=== PATIENT | male | born 1970 | race Caucasian/White ===

== ENCOUNTER 2018-05-15 15:57 | Inpatient (IN) | payer OTHER ==
[2018-05-15 19:03] VITALS: BMI 22.3
--- NOTE | 2018-05-15 21:27 | HP ---
CIWA Score - CIWA Score Nausea/Vomitin (vomiting x 3) Muscle Tremors: 3 Anxiety: 3 Agitation: 0-Normal Activity Paroxysmal Sweats: No Perspiration Orientation: 0-Oriented Tacttile Disturbances: 2-Mild Itch/Numbness/Burn Auditory Disturbances: 0-None Visual Disturbances: 0-None Headache: 4-Moderately Severe CIWA-Ar Total Score: 15 Admission ROS S - HPI Chief Complaint: Alcohol withdrawal symptoms Allergies/Adverse Reactions: Allergies Allergy/AdvReac Type Severity Reaction Status Date / Time No Known Allergies Allergy Verified 05/15/18 18:44 History of Present Illness: 47 years old male with a long history of alcohol dependence is seeking admission to detox. This is his first detox and first admission to [facility]. He has medical history of Arthritis, chronic back pain, anxiety and depression and Hypertension. He denies suicidal attempt and [id number] ideation at this time. Patient reports four years of sobriety and states that he has been homeless for three years now. Exam Limitations: No Limitations - Ebola screening Have you traveled outside of the country in the last 21 days: No Have you had contact with anyone from an Ebola affected area: No Have you been sick,other than usual withdrawal symptoms: No Do you have a fever: No - Review of Systems Constitutional: Loss of Appetite, Malaise, Night Sweats, Changes in sleep, Weakness EENT: reports: Other (left ear hearing impaired) Respiratory: reports: No Symptoms reported Cardiac: reports: No Symptoms Reported GI: reports: Diarrhea (diarrhea x 4), Poor Appetite, Poor Fluid Intake, Vomiting , Abdominal cramping : reports: No Symptoms Reported Musculoskeletal: reports: No Symptoms Reported Integumentary: reports: Dryness Neuro: reports: Headache, Tingling, Weakness Endocrine: reports: No Symptoms Reported Hematology: reports: No Symptoms Reported Psychiatric: reports: Orientated x3, Anxious, Depressed Other Systems: Reviewed and Negative Patient History - Patient Medical History Hx Anemia: No Hx Asthma: No Hx Chronic Obstructive Pulmonary Disease (COPD): No Hx Cancer: No Hx Cardiac Disorders: No Hx Congestive Heart Failure: No Hx Hypertension: Yes (Not on medication) Hx Hypercholesterolemia: No Hx Pacemaker: No HX Cerebrovascular Accident: No Hx Seizures: No Hx Dementia: No Hx Diabetes: No Hx Gastrointestinal Disorders: No Hx Liver Disease: No Hx Genitourinary Disorders: No Hx Sexually Transmitted Disorders: No Hx Renal Disease (ESRD): No Hx Thyroid Disease: No Hx Human Immunodeficiency Virus (HIV): No (Negative 2011) Hx Hepatitis C: No Hx Depression: Yes (Not on m edication) Hx Suicide Attempt: No (Denies suicide attempt/ suicdalo ideation) Hx Bipolar Disorder: No Hx Schizophrenia: No Other Medical History: Anxiety, Arthritis and baqck pain - Not on medication - Patient Surgical History Past Surgical History: Yes Hx Neurologic Surgery: No Hx Cataract Extraction: No Hx Cardiac Surgery: No Hx Lung Surgery: No Hx Breast Surgery: No Hx Breast Biopsy: No Hx Abdominal Surgery: No Hx Appendectomy: No Hx Cholecystectomy: No Hx Genitourinary Surgery: No Hx Section: No Hx Orthopedic Surgery: Yes (-2015) Other Surgical History: HERNIA- 2011 Anesthesia Reaction: No - PPD History Previous Implant?: Yes Documented Results: Negative w/o proof - Smoking Cessation Smoking history: Current every day smoker Aproximately how many cigarettes per day: 10 Hx Chewing Tobacco Use: No Initiated information on smoking cessation: Yes 'Breaking Loose' booklet given: 05/15/18 - Substances Abused Alcohol Route: Oral Frequency: Daily Amount used: LIQUOR- 3 PINTS, BEER- 1 SIX PACK Age of first use: 17 Date of Last Use: 05/14/18 Marijuana/Hashish Route: Smoking Frequency: Daily Amount used: 1 SAIMA Age of first use: 21 Date of Last Use: 05/15/18 Family Disease History - Family Disease History Family Disease History: Diabetes: Mother (Ovarian Ca), Heart Disease: Father ( Stroke at 47 years, Alcoho abuse), Mother, CA: Grandparent (prostate (father), ovarian ca (mother)), Mother Admission Physical Exam [facility] - Vital Signs Vital Signs: Vital Signs - 24 hr 05/15/18 18:33 Temperature 98.3 F Pulse Rate 72 Respiratory 18 Rate Blood Pressure 132/90 - Physical General Appearance: Yes: Appropriately Dressed, Moderate Distress, Sweating, Anxious HEENTM: Yes: Normal ENT Inspection, Normal Voice, NICK Respiratory: Yes: Lungs Clear, Normal Breath Sounds, No Respiratory Distress Neck: Yes: Supple Breast: Yes: Breast Exam Deferred Cardiology: Yes: Regular Rhythm, Regular Rate, S1, S2 Abdominal: Yes: Normal Bowel Sounds Genitourinary: Yes: Within Normal Limits Back: Yes: Normal Inspection Musculoskeletal: Yes: Within Normal Limits Extremities: Yes: Tremors Neurological: Yes: assistant librarian II-XII NML intact, Normal Mood/Affect Integumentary: Yes: Warm - Diagnostic (1) Alcohol dependence with uncomplicated withdrawal Current Visit: Yes Status: Chronic (2) Nicotine dependence in remission Current Visit: Yes Status: Chronic (3) Arthritis Current Visit: Yes Status: Chronic (4) Back pain Current Visit: Yes Status: Chronic (5) Anxiety Current Visit: Yes Status: Chronic (6) Depression Current Visit: Yes Status: Chronic Qualifiers: Depression Type: unspecified Qualified Code(s): F32.9 - Major depressive disorder, single episode, unspecified (7) Hypertension Current Visit: Yes Status: Acute Cleared for Admission [facility] - Detox or Rehab [facility] Level of Care: Medically Managed Detox Regimen/Protocol: Librium [facility] Breath Alcohol Content Breath Alcohol Content: 0 Urine Drug Screen - Results Drug Screen Negative: No Urine Drug Screen Results: THC-Marijuana, BAR-Barbiturates
[2018-05-15] MEDS ORDERED: P-EPHED 60MG/TRIPROLIDI 2.5MG TABLET PO PRN (21:42)
[2018-05-15] MEDS ORDERED: chlordiazePOXIDE HCL 25 MG CAPSULE PO PRN (21:42)
[2018-05-15] MEDS ORDERED: ACETAMINOPHEN 325 MG TABLET (FP) PO PRN (21:42)
[2018-05-15] MEDS ORDERED: LOPERAMIDE HCL 2 MG CAPSULE PO PRN (21:42)
[2018-05-15] MEDS ORDERED: MENTHOL/PHENOL 1 EACH UD MM PRN (21:42)
[2018-05-15] MEDS ORDERED: MAG HYDROX/AL HYDROX/SIMETH 30 ML UNIT-DOSE CUP PO PRN (21:42)
[2018-05-15] MEDS ORDERED: MAGNESIUM CITRATE 300 ML BOTTLE PO PRN (21:42)
[2018-05-15] MEDS ORDERED: NICOTINE POLACRILEX 2 MG GUM BC PRN (21:42)
[2018-05-15] MEDS ORDERED: MAGNESIUM HYDROX 2400MG/30ML ORAL SUSPENSION 30 ML CUP PO PRN (21:42)
[2018-05-15] MEDS ORDERED: MELATONIN 5 MG TABLETS PO PRN (22:00)
[2018-05-15] MEDS: chlordiazePOXIDE HCL 25 MG CAPSULE PO SCH (23:29)
[2018-05-15] MEDS: THIAMINE HCL 100 MG TABLET (FP) PO SCH (23:30)
[2018-05-15] MEDS: IBUPROFEN 400 MG TABLET (FP) PO PRN (23:35)
[2018-05-15 23:52] LABS: URINE APPEARANCE CLEAR; URINE BILIRUBIN NEGATIVE (<2.0 mg/dL); URINE COLOR YELLOW; URINE GLUCOSE (UA) NEGATIVE (NEGATIVE); URINE KETONE NEGATIVE (NEGATIVE); URINE LEUK ESTERASE NEGATIVE (NEGATIVE); URINE NITRITE NEGATIVE (NEGATIVE); URINE PROTEIN NEGATIVE (NEGATIVE); URINE UROBILINOGEN NEGATIVE mg/dL (0.2-1.0)
[2018-05-16] MEDS: guaiFENesin/D-METHORPHAN HB 10 ML UNIT-DOSE CUPS PO PRN ×2 (06:08→22:13)
[2018-05-16] MEDS: chlordiazePOXIDE HCL 25 MG CAPSULE PO SCH ×4 (06:08→22:13)
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
[2018-05-16 10:22] LABS: HEMATOCRIT 40.8 % (35.4-49); HEMOGLOBIN 13.3 GM/dL (11.7-16.9); MCH 30.8 pg (25.7-33.7); MCHC 32.5 g/dl (32.0-35.9); MEAN CELL VOLUME 94.7 fl (80-96); MEAN PLT VOLUME 9.4 fl (7.5-11.1); PLATELET COUNT 240 K/MM3 (134-434); RBC 4.31 M/mm3 (4.00-5.60); RDW 14.9 % (11.9-15.9); WHITE BLOOD COUNT 10.2 K/mm3 (4.0-10.0)
[2018-05-16] MEDS: NICOTINE 14 MG/24 HOURS TOPICAL PATCH TD SCH (10:22)
[2018-05-16] MEDS: PRENATAL VITAMINS W/ FOLIC ACID TABLET (FP) PO SCH (10:22)
[2018-05-16 11:31] LABS: ALBUMIN 3.4 g/dl (3.4-5.0); ANION GAP 5 MMOL/L (8-16); BLOOD UREA NITROGEN 16 mg/dL (7-18); CALCIUM 9.4 mg/dL (8.5-10.1); CHLORIDE 92 mmol/L (98-107); CO2 42 mmol/L (21-32); GLUCOSE,RANDOM 117 mg/dL (74-106); POTASSIUM 3.2 mmol/L (3.5-5.1); SGOT/AST 59 U/L (15-37); SODIUM 139 mmol/L (136-145)
[2018-05-16 11:33] LABS: ALK PHOS 126 U/L (45-117); BILIRUBIN,TOTAL 0.3 mg/dL (0.2-1.0); CREATININE 0.7 mg/dL (0.7-1.3); SGPT/ALT 48 U/L (12-78); TOT PROT 7.1 g/dl (6.4-8.2)
--- NOTE | 2018-05-16 15:00 | PN ---
[facility] CIWA - CIWA Score Nausea/Vomitin-Mild Nausea/No Vomiting Muscle Tremors: 4-Moderate,w/Arms Extend Anxiety: 4-Mod. Anxious/Guarded Agitation: 3 Paroxysmal Sweats: 1-Minimal Palms Moist Orientation: 0-Oriented Tacttile Disturbances: 1-Very Mild Itch/Numbness Auditory Disturbances: 0-None Visual Disturbances: 0-None Headache: 0-None Present CIWA-Ar Total Score: 14 BHS Progress Note (SOAP) Subjective: sweat tremor restlessness low energy Objective: 05/16/18 15:00 Vital Signs Temperature 97.7 F 05/16/18 13:09 Pulse Rate 76 05/16/18 13:09 Respiratory Rate 18 05/16/18 13:09 Blood Pressure 122/76 05/16/18 13:09 O2 Sat by Pulse Oximetry (%) Laboratory Last Values WBC 10.2 K/mm3 (4.0-10.0) H 05/16/18 07:00 RBC 4.31 M/mm3 (4.00-5.60) 05/16/18 07:00 Hgb 13.3 GM/dL (11.7-16.9) 05/16/18 07:00 Hct 40.8 % (35.4-49) 05/16/18 07:00 MCV 94.7 fl (80-96) 05/16/18 07:00 MCH 30.8 pg (25.7-33.7) 05/16/18 07:00 MCHC 32.5 g/dl (32.0-35.9) 05/16/18 07:00 RDW 14.9 % (11.9-15.9) 05/16/18 07:00 Plt Count 240 K/MM3 (134-434) 05/16/18 07:00 MPV 9.4 fl (7.5-11.1) 05/16/18 07:00 Sodium 139 mmol/L (136-145) 05/16/18 07:00 Potassium 3.2 mmol/L (3.5-5.1) L 05/16/18 07:00 Chloride 92 mmol/L (98-107) L 05/16/18 07:00 Carbon Dioxide 42 mmol/L (21-32) H 05/16/18 07:00 Anion Gap 5 MMOL/L (8-16) L 05/16/18 07:00 BUN 16 mg/dL (7-18) 05/16/18 07:00 Creatinine 0.7 mg/dL (0.7-1.3) 05/16/18 07:00 Creat Clearance w eGFR > 60 (>60) 05/16/18 07:00 Random Glucose 117 mg/dL (74-106) H 05/16/18 07:00 Calcium 9.4 mg/dL (8.5-10.1) 05/16/18 07:00 Total Bilirubin 0.3 mg/dL (0.2-1.0) 05/16/18 07:00 AST 59 U/L (15-37) H 05/16/18 07:00 ALT 48 U/L (12-78) 05/16/18 07:00 Alkaline Phosphatase 126 U/L (45-117) H 05/16/18 07:00 Total Protein 7.1 g/dl (6.4-8.2) 05/16/18 07:00 Albumin 3.4 g/dl (3.4-5.0) 05/16/18 07:00 Urine Color Yellow 05/15/18 23:35 Urine Appearance Clear 05/15/18 23:35 Urine pH 5.0 (5.0-8.0) 05/15/18 23:35 Ur Specific [place] 1.020 (1.001-1.035) 05/15/18 23:35 Urine Protein Negative (NEGATIVE) 05/15/18 23:35 Urine Glucose (UA) Negative (NEGATIVE) 05/15/18 23:35 Urine Ketones Negative (NEGATIVE) 05/15/18 23:35 Urine Blood Negative (NEGATIVE) 05/15/18 23:35 Urine Nitrite Negative (NEGATIVE) 05/15/18 23:35 Urine Bilirubin Negative (<2.0 mg/dL) 05/15/18 23:35 Urine Urobilinogen Negative mg/dL (0.2-1.0) 05/15/18 23:35 Ur Leukocyte Esterase Negative (NEGATIVE) 05/15/18 23:35 HIV 1&2 Antibody Screen Negative 05/16/18 07:00 HIV P24 Antigen Negative 05/16/18 07:00 lab noted Assessment: 05/16/18 15:01 withdrawal sx Plan: continue detox
--- NOTE | 2018-05-16 17:21 | EKG ---
Test Reason : Blood Pressure : / mmHG Vent. Rate : 064 BPM Atrial Rate : 064 BPM P-R Int : 150 ms QRS Dur : 100 ms QT Int : 460 ms P-R-T Axes : 037 070 044 degrees QTc Int : 474 ms NORMAL SINUS RHYTHM NORMAL ECG Confirmed by MD MONROE GREGORY ([id number]) on 05/16/2018 5:21:33 PM Referred By: Confirmed By:DANYA MONROE MD
[2018-05-16] MEDS: THIAMINE HCL 100 MG TABLET (FP) PO SCH (22:13)
[2018-05-17] MEDS: chlordiazePOXIDE HCL 25 MG CAPSULE PO SCH ×3 (06:21→17:56)
[2018-05-17] MEDS: PRENATAL VITAMINS W/ FOLIC ACID TABLET (FP) PO SCH (10:15)
[2018-05-17] MEDS: NICOTINE 14 MG/24 HOURS TOPICAL PATCH TD SCH (10:15)
[2018-05-17] MEDS ORDERED: hydrOXYzine PAMOATE 25 MG CAPSULE (FP) PO PRN (10:25)
--- NOTE | 2018-05-17 10:36 | PN ---
S CIWA - CIWA Score Nausea/Vomitin Muscle Tremors: 2 Anxiety: 3 Agitation: 2 Paroxysmal Sweats: 3 Orientation: 0-Oriented Tacttile Disturbances: 1-Very Mild Itch/Numbness Auditory Disturbances: 0-None Visual Disturbances: 0-None Headache: 0-None Present CIWA-Ar Total Score: 13 S Progress Note (SOAP) Subjective: sleeping better but seats and anxiety Objective: 05/17/18 10:35 Vital Signs Temperature 97.5 F L 05/17/18 09:37 Pulse Rate 74 05/17/18 09:37 Respiratory Rate 18 05/17/18 09:37 Blood Pressure 149/77 05/17/18 09:37 O2 Sat by Pulse Oximetry (%) Laboratory Tests 05/15/18 05/16/18 05/16/18 23:35 07:00 07:00 WBC 10.2 H RBC 4.31 Hgb 13.3 Hct 40.8 MCV 94.7 MCH 30.8 MCHC 32.5 RDW 14.9 Plt Count 240 MPV 9.4 Sodium Potassium Chloride Carbon Dioxide Anion Gap BUN Creatinine Creat Clearance w eGFR Random Glucose Calcium Total Bilirubin AST ALT Alkaline Phosphatase Total Protein Albumin Urine Color Yellow Urine Appearance Clear Urine pH 5.0 Ur Specific [place] 1.020 Urine Protein Negative Urine Glucose (UA) Negative Urine Ketones Negative Urine Blood Negative Urine Nitrite Negative Urine Bilirubin Negative Urine Urobilinogen Negative Ur Leukocyte Esterase Negative RPR Titer HIV 1&2 Antibody Screen Negative HIV P24 Antigen Negative 05/16/18 05/16/18 07:00 07:00 WBC RBC Hgb Hct MCV MCH MCHC RDW Plt Count MPV Sodium 139 Potassium 3.2 L Chloride 92 L Carbon Dioxide 42 H Anion Gap 5 L BUN 16 Creatinine 0.7 Creat Clearance w eGFR > 60 Random Glucose 117 H Calcium 9.4 Total Bilirubin 0.3 AST 59 H ALT 48 Alkaline Phosphatase 126 H Total Protein 7.1 Albumin 3.4 Urine Color Urine Appearance Urine pH Ur Specific [place] Urine Protein Urine Glucose (UA) Urine Ketones Urine Blood Urine Nitrite Urine Bilirubin Urine Urobilinogen Ur Leukocyte Esterase RPR Titer Nonreactive HIV 1&2 Antibody Screen HIV P24 Antigen pt aox3 in nad lying in bed Assessment: 05/17/18 10:36 withdrawal sx's Plan: cont. detox increase fluids vistaril prn
--- NOTE | 2018-05-17 11:33 | PN ---
S CIWA - CIWA Score Nausea/Vomitin Muscle Tremors: 2 Anxiety: 3 Agitation: 2 Paroxysmal Sweats: 3 Orientation: 0-Oriented Tacttile Disturbances: 1-Very Mild Itch/Numbness Auditory Disturbances: 0-None Visual Disturbances: 0-None Headache: 0-None Present CIWA-Ar Total Score: 13 BHS Progress Note (SOAP) Subjective: sleeping better, has sweats and anxiety. Objective: 05/17/18 10:32 Vital Signs Temperature 97.5 F L 05/17/18 09:37 Pulse Rate 74 05/17/18 09:37 Respiratory Rate 05/17/18 09:37 Blood Pressure 149/77 05/17/18 09:37 O2 Sat by Pulse Oximetry (%) Laboratory Tests 05/15/18 05/16/18 05/16/18 23:35 07:00 07:00 WBC 10.2 H RBC 4.31 Hgb 13.3 Hct 40.8 MCV 94.7 MCH 30.8 MCHC 32.5 RDW 14.9 Plt Count 240 MPV 9.4 Sodium Potassium Chloride Carbon Dioxide Anion Gap BUN Creatinine Creat Clearance w eGFR Random Glucose Calcium Total Bilirubin AST ALT Alkaline Phosphatase Total Protein Albumin Urine Color Yellow Urine Appearance Clear Urine pH 5.0 Ur Specific [place] 1.020 Urine Protein Negative Urine Glucose (UA) Negative Urine Ketones Negative Urine Blood Negative Urine Nitrite Negative Urine Bilirubin Negative Urine Urobilinogen Negative Ur Leukocyte Esterase Negative RPR Titer HIV 1&2 Antibody Screen Negative HIV P24 Antigen Negative 05/16/18 05/16/18 07:00 07:00 WBC RBC Hgb Hct MCV MCH MCHC RDW Plt Count MPV Sodium 139 Potassium 3.2 L Chloride 92 L Carbon Dioxide 42 H Anion Gap 5 L BUN 16 Creatinine 0.7 Creat Clearance w eGFR > 60 Random Glucose 117 H Calcium 9.4 Total Bilirubin 0.3 AST 59 H ALT 48 Alkaline Phosphatase 126 H Total Protein 7.1 Albumin 3.4 Urine Color Urine Appearance Urine pH Ur Specific [place] Urine Protein Urine Glucose (UA) Urine Ketones Urine Blood Urine Nitrite Urine Bilirubin Urine Urobilinogen Ur Leukocyte Esterase RPR Titer Nonreactive HIV 1&2 Antibody Screen HIV P24 Antigen pt aox3 in nad ambulating.
[2018-05-17] MEDS: chlordiazePOXIDE 5 MG CAPSULE PO SCH (23:15)
[2018-05-17] MEDS: THIAMINE HCL 100 MG TABLET (FP) PO SCH (23:16)
[2018-05-17] MEDS: guaiFENesin/D-METHORPHAN HB 10 ML UNIT-DOSE CUPS PO PRN (23:56)
[2018-05-18] MEDS: chlordiazePOXIDE 5 MG CAPSULE PO SCH ×3 (05:28→17:55)
--- NOTE | 2018-05-18 09:41 | PN ---
BHS Progress Note (SOAP) Subjective: feeling better today sleep better at night no tremor less sweat no gi distress Objective: 05/18/18 09:40 Vital Signs Temperature 97.7 F 05/18/18 09:00 Pulse Rate 70 05/18/18 09:00 Respiratory Rate 18 05/18/18 09:00 Blood Pressure 133/89 05/18/18 09:00 O2 Sat by Pulse Oximetry (%) Laboratory Last Values WBC 10.2 K/mm3 (4.0-10.0) H 05/16/18 07:00 RBC 4.31 M/mm3 (4.00-5.60) 05/16/18 07:00 Hgb 13.3 GM/dL (11.7-16.9) 05/16/18 07:00 Hct 40.8 % (35.4-49) 05/16/18 07:00 MCV 94.7 fl (80-96) 05/16/18 07:00 MCH 30.8 pg (25.7-33.7) 05/16/18 07:00 MCHC 32.5 g/dl (32.0-35.9) 05/16/18 07:00 RDW 14.9 % (11.9-15.9) 05/16/18 07:00 Plt Count 240 K/MM3 (134-434) 05/16/18 07:00 MPV 9.4 fl (7.5-11.1) 05/16/18 07:00 Sodium 139 mmol/L (136-145) 05/16/18 07:00 Potassium 3.2 mmol/L (3.5-5.1) L 05/16/18 07:00 Chloride 92 mmol/L (98-107) L 05/16/18 07:00 Carbon Dioxide 42 mmol/L (21-32) H 05/16/18 07:00 Anion Gap 5 MMOL/L (8-16) L 05/16/18 07:00 BUN 16 mg/dL (7-18) 05/16/18 07:00 Creatinine 0.7 mg/dL (0.7-1.3) 05/16/18 07:00 Creat Clearance w eGFR > 60 (>60) 05/16/18 07:00 Random Glucose 117 mg/dL (74-106) H 05/16/18 07:00 Calcium 9.4 mg/dL (8.5-10.1) 05/16/18 07:00 Total Bilirubin 0.3 mg/dL (0.2-1.0) 05/16/18 07:00 AST 59 U/L (15-37) H 05/16/18 07:00 ALT 48 U/L (12-78) 05/16/18 07:00 Alkaline Phosphatase 126 U/L (45-117) H 05/16/18 07:00 Total Protein 7.1 g/dl (6.4-8.2) 05/16/18 07:00 Albumin 3.4 g/dl (3.4-5.0) 05/16/18 07:00 Urine Color Yellow 05/15/18 23:35 Urine Appearance Clear 05/15/18 23:35 Urine pH 5.0 (5.0-8.0) 05/15/18 23:35 Ur Specific [place] 1.020 (1.001-1.035) 05/15/18 23:35 Urine Protein Negative (NEGATIVE) 05/15/18 23:35 Urine Glucose (UA) Negative (NEGATIVE) 05/15/18 23:35 Urine Ketones Negative (NEGATIVE) 05/15/18 23:35 Urine Blood Negative (NEGATIVE) 05/15/18 23:35 Urine Nitrite Negative (NEGATIVE) 05/15/18 23:35 Urine Bilirubin Negative (<2.0 mg/dL) 05/15/18 23:35 Urine Urobilinogen Negative mg/dL (0.2-1.0) 05/15/18 23:35 Ur Leukocyte Esterase Negative (NEGATIVE) 05/15/18 23:35 RPR Titer Nonreactive (NONREACTIVE) 05/16/18 07:00 HIV 1&2 Antibody Screen Negative 05/16/18 07:00 HIV P24 Antigen Negative 05/16/18 07:00 lab noted 05/18/18 09:43 K+ supplement Assessment: 05/18/18 09:43 mild withdrawal sx Plan: medically supervised detox
[2018-05-18] MEDS: NICOTINE 14 MG/24 HOURS TOPICAL PATCH TD SCH (10:11)
[2018-05-18] MEDS: PRENATAL VITAMINS W/ FOLIC ACID TABLET (FP) PO SCH (10:11)
[2018-05-18] MEDS: POTASSIUM CHLORIDE TABS 20 MEQ TABLET.ER (FP) PO SCH ×2 (10:13→22:09)
[2018-05-18] MEDS: IBUPROFEN 400 MG TABLET (FP) PO PRN (10:13)
[2018-05-18] MEDS: chlordiazePOXIDE HCL 10 MG CAPSULE PO SCH (22:09)
[2018-05-18] MEDS: THIAMINE HCL 100 MG TABLET (FP) PO SCH (22:09)
[2018-05-18] MEDS: guaiFENesin/D-METHORPHAN HB 10 ML UNIT-DOSE CUPS PO PRN (22:10)
[2018-05-19] MEDS: chlordiazePOXIDE HCL 10 MG CAPSULE PO SCH ×2 (05:54→10:27)
--- NOTE | 2018-05-19 09:13 | PN ---
BHS Progress Note (SOAP) Subjective: i"m improved Objective: 05/19/18 09:12 Vital Signs Temperature 97.7 F 05/19/18 06:12 Pulse Rate 63 05/19/18 06:12 Respiratory Rate 17 05/19/18 06:12 Blood Pressure 140/89 05/19/18 06:12 O2 Sat by Pulse Oximetry (%) Laboratory Tests 05/15/18 05/16/18 05/16/18 23:35 07:00 07:00 WBC 10.2 H RBC 4.31 Hgb 13.3 Hct 40.8 MCV 94.7 MCH 30.8 MCHC 32.5 RDW 14.9 Plt Count 240 MPV 9.4 Sodium Potassium Chloride Carbon Dioxide Anion Gap BUN Creatinine Creat Clearance w eGFR Random Glucose Calcium Total Bilirubin AST ALT Alkaline Phosphatase Total Protein Albumin Urine Color Yellow Urine Appearance Clear Urine pH 5.0 Ur Specific [place] 1.020 Urine Protein Negative Urine Glucose (UA) Negative Urine Ketones Negative Urine Blood Negative Urine Nitrite Negative Urine Bilirubin Negative Urine Urobilinogen Negative Ur Leukocyte Esterase Negative RPR Titer HIV 1&2 Antibody Screen Negative HIV P24 Antigen Negative 05/16/18 05/16/18 07:00 07:00 WBC RBC Hgb Hct MCV MCH MCHC RDW Plt Count MPV Sodium 139 Potassium 3.2 L Chloride 92 L Carbon Dioxide 42 H Anion Gap 5 L BUN 16 Creatinine 0.7 Creat Clearance w eGFR > 60 Random Glucose 117 H Calcium 9.4 Total Bilirubin 0.3 AST 59 H ALT 48 Alkaline Phosphatase 126 H Total Protein 7.1 Albumin 3.4 Urine Color Urine Appearance Urine pH Ur Specific [place] Urine Protein Urine Glucose (UA) Urine Ketones Urine Blood Urine Nitrite Urine Bilirubin Urine Urobilinogen Ur Leukocyte Esterase RPR Titer Nonreactive HIV 1&2 Antibody Screen HIV P24 Antigen pt aox3 in nad ambulating 05/19/18 09:14 Assessment: 05/19/18 09:14 detox completed hypokalemia - K replaced 05/19/18 09:15 Plan: d/c today increase fluids
--- NOTE | 2018-05-19 09:17 | DS ---
[facility] Detox Discharge Summary Admission Date: 05/15/18 Discharge Date: 05/19/18 - History Present History: Alcohol Dependence - Physical Exam Results Vital Signs: Vital Signs Temperature 97.7 F 05/19/18 06:12 Pulse Rate 63 05/19/18 06:12 Respiratory Rate 17 05/19/18 06:12 Blood Pressure 140/89 05/19/18 06:12 O2 Sat by Pulse Oximetry (%) - Treatment Hospital Course: Detox Protocol Followed, Detoxed Safely, Responded well, Discharged Condition Good - Medication Discharge Medications: Ambulatory Orders NK [No Known Home Medication] 05/15/18 - Diagnosis (1) Alcohol dependence with uncomplicated withdrawal Current Visit: Yes Status: Chronic (2) Hypertension Current Visit: Yes Status: Chronic (3) Anxiety Current Visit: Yes Status: Chronic (4) Back pain Current Visit: Yes Status: Chronic Qualifiers: Chronicity: chronic (5) Nicotine dependence in remission Current Visit: Yes Status: Chronic Qualifiers: Nicotine product type: cigarettes Qualified Code(s): F17.211 - Nicotine dependence, cigarettes, in remission - AMA Did Patient Leave Against Medical Advice: No
[2018-05-19 09:47] VITALS: BP 123/81; PULSE 76; TEMP 98
[2018-05-19] MEDS: NICOTINE 14 MG/24 HOURS TOPICAL PATCH TD SCH (10:25)
[2018-05-19] MEDS: PRENATAL VITAMINS W/ FOLIC ACID TABLET (FP) PO SCH (10:25)
[2018-05-19] MEDS: POTASSIUM CHLORIDE TABS 20 MEQ TABLET.ER (FP) PO SCH (10:25)
[2018-05-19] MEDS: IBUPROFEN 400 MG TABLET (FP) PO PRN (10:26)
[2018-05-19] MEDS: guaiFENesin/D-METHORPHAN HB 10 ML UNIT-DOSE CUPS PO PRN (10:27)
== END 2018-05-19 10:47 | disposition home or self-care (01) | DRG 775 ==
LOC: YASAS 15:57 → Y6N 20:33
PROC: HZ2ZZZZ Detoxification Services for Substance Abuse Treatment (ICD-10-PCS; principal; 2018-05-15)
DX: F10.230 Alcohol dependence with withdrawal, uncomplicated (principal); F17.211 Nicotine dependence, cigarettes, in remission; F10.24 Alcohol dependence with alcohol-induced mood disorder; F41.9 Anxiety disorder, unspecified; F32.9 Major depressive disorder, single episode, unspecified; M54.9 Dorsalgia, unspecified; M12.9 Arthropathy, unspecified
CPT/HCPCS: 36415; 80053; 81003; 85027; 86593; 87389; 93005; 93010